=== PATIENT | female | born 1990 | race Two or more races ===

== ENCOUNTER 2022-09-28 10:02 | Emergency (ER) | payer MEDICAID ==
[~2022-09-28] VITALS: Ht 157.5 cm; Wt 77.0 kg
[2022-09-28 10:57] LABS: Urine Bacteria FEW /hpf (None Seen); Urine Blood TRACE /uL (Negative); Urine Mucus FEW (None Seen); Urine Specific Gravity 1.027 (1.001-1.035); Urine WBC <1 /hpf (0 - 5)
[2022-09-28 11:17] VITALS: BP 126/76
[2022-09-28] MEDS ORDERED: SUMA50TA2 PO (12:00)
== END 2022-09-28 12:06 | disposition home or self-care (01) ==
LOC: ER 10:02
DX: G44.209 Tension-type headache, unspecified, not intractable (principal); F41.9 Anxiety disorder, unspecified
CPT/HCPCS: 70450; 81001

== ENCOUNTER → 2022-10-27 | Day surgery (SDC) | payer MEDICAID ==
[2022-10-25 12:11] LABS: Basophils # (auto) 0.1 10 ^3/uL (0-0.2); Basophils % (auto) 0.7 % (0.0-2.0); Hemoglobin 13.5 g/dL (12.2-16.2); Lymphocytes # (auto) 2.3 10 ^3/uL (0.4-5.4); Mean Corpuscular Hgb Conc. 33.7 g/dL (32.0-36.0); Monocytes # (auto) 0.7 10 ^3/uL (0-1.3)
[2022-10-25 12:14] LABS: Eosinophils # (auto) 0.6 10 ^3/uL (0-0.8); Eosinophils % (auto) 6.4 % (0.0-7.0); Hematocrit 39.9 % (36.0-46.0); Lymphocytes % (auto) 25.6 % (10.0-50.0); Mean Corpuscular Hemoglobin 26.5 pg (28.0-32.0); Mean Corpuscular Volume 78.7 fL (80.0-100.0); Monocytes % (auto) 7.6 % (0.0-12.0); Neutrophils # (auto) 5.4 10 ^3/uL (1.6-8.6); Neutrophils % (auto) 59.7 % (37.0-80.0); Nucleated Red Blood Cells % 0.1 %; Red Blood Cells 5.08 10^6/uL (4.0-5.20); Red Cell Distribution Width 14.8 % (11.8-14.3)
[2022-10-25 12:17] LABS: INR 0.94 (0.9-1.15); Partial Thromboplastin Time 29.5 sec (24.6-33.4)
[2022-10-25 12:32] LABS: Albumin 3.7 g/dL (3.4-5.0); Anion Gap 4 (5-15); Blood Urea Nitrogen 14 mg/dL (7-18); Calcium 8.7 mg/dL (8.5-10.1); Carbon Dioxide 29 mmol/L (21-32); Chloride 105 mmol/L (98-107); Glucose 83 mg/dL (74-106); Potassium 3.9 mmol/L (3.5-5.1); Sodium 138 mmol/L (136-145)
[2022-10-25 12:36] LABS: Alanine Aminotransferase 16 U/L (13-56); Alkaline Phosphatase 93 U/L (45-117); Aspartate Aminotransferase < 3 U/L (15-37); Bilirubin, Total 0.5 mg/dL (0.2-1.0); GFR African American 146 mL/min; GFR Non-African American 121 mL/min; Total Protein 7.3 g/dL (6.4-8.2)
[~2022-10-27] MED LIST: LIDOCAINE VISCOUS 2% 15ML UD ONE; LORA10TA6 PO; MEDR150I IM; SUMA50TA2 PO
[2022-10-27] MEDS: MIDAZOLAM HCL 2MG/2ML 2ml VIAL (1mg/ml) ONE ×2 (13:29→13:33)
[2022-10-27] MEDS: fentaNYL CITRATE 100 MCG/2 ML VL ONE ×2 (13:29→13:33)
[2022-10-27] MEDS: diphenhdrAMINE HCL 50 MG/1 ML VL ONE ×2 (13:29→13:31)
[2022-10-27 14:15] VITALS: BP 100/62
== END | disposition home or self-care (01) ==
LOC: GI 12:45
PROVIDERS: ATTEND Internal Medicine Gastroenterology
DX: R11.2 Nausea with vomiting, unspecified (principal); K21.00 Gastro-esophageal reflux disease with esophagitis, without bleeding; K29.90 Gastroduodenitis, unspecified, without bleeding; K44.9 Diaphragmatic hernia without obstruction or gangrene; Z20.822 Contact with and (suspected) exposure to COVID-19
CPT/HCPCS: 36415; 43239; 80053; 81025; 84702; 85025; 85610; 85730; J1200; J2250; J3010; J7030; U0003

== ENCOUNTER 2023-09-20 10:27 | Emergency (ER) | payer MEDICAID ==
[~2023-09-20] VITALS: Ht 157.5 cm; Wt 82.3 kg
[~2023-09-20 10:27] MED LIST changes: -LIDOCAINE VISCOUS 2% 15ML UD ONE
[2023-09-20 11:09] LABS: Lymphocytes # (auto) 2.6 10 ^3/uL (0.4-5.4); Neutrophils # (auto) 4.3 10 ^3/uL (1.6-8.6); White Blood Cell 7.7 10^3/uL (4.4-10.8)
[2023-09-20 11:11] LABS: Basophils # (auto) 0 10 ^3/uL (0-0.2); Basophils % (auto) 0.6 % (0.0-2.0); Eosinophils # (auto) 0.1 10 ^3/uL (0-0.8); Eosinophils % (auto) 1.6 % (0.0-7.0); Hematocrit 41.7 % (36.0-46.0); Hemoglobin 13.7 g/dL (12.2-16.2); Lymphocytes % (auto) 34.5 % (10.0-50.0); Mean Corpuscular Hemoglobin 26.4 pg (28.0-32.0); Mean Corpuscular Hgb Conc. 32.9 g/dL (32.0-36.0); Mean Corpuscular Volume 80.2 fL (80.0-100.0); Monocytes # (auto) 0.6 10 ^3/uL (0-1.3); Monocytes % (auto) 7.4 % (0.0-12.0); Neutrophils % (auto) 55.9 % (37.0-80.0); Red Blood Cells 5.19 10^6/uL (4.0-5.20); Red Cell Distribution Width 15.4 % (11.8-14.3)
[2023-09-20 11:21] LABS: Prothrombin Time 10.5 sec (9.3-11.8)
[2023-09-20 11:26] LABS: Free T3 3.64 pg/mL (2.3-4.2)
[2023-09-20 11:27] LABS: Free T4 (Free Thyroxine) 0.99 ng/dL (0.89-1.76)
[2023-09-20 12:00] LABS: Amphetamine Screen, Urine Neg (NEGATIVE); Barbiturate Scree,Urine Neg (NEGATIVE); Benzodiazephine Screen, Urine Neg (NEGATIVE); Cannabinoid Screen, Urine Neg (NEGATIVE); Cocaine Screen, Urine Neg (NEGATIVE); Opiate Scree,Urine Neg (NEGATIVE); Phencyclidine Screen, Urine Neg (NEGATIVE)
[2023-09-20 12:10] LABS: Alanine Aminotransferase 10 U/L (7-40); Albumin 4.6 g/dL (3.2-4.8); Alkaline Phosphatase 78 U/L (46-116); Anion Gap 7 (5-15); Aspartate Aminotransferase 13 U/L (13-40); BUN/Creatinine Ratio 18.2 (10.0-20.0); Blood Urea Nitrogen 10 mg/dL (9-23); Calcium 9.1 mg/dL (8.7-10.4); Carbon Dioxide 24 mmol/L (20-30); Chloride 106 mmol/L (98-107); Glucose 87 mg/dL (74-106); Lipase 39 U/L (12-53); Potassium 3.9 mmol/L (3.5-5.1); Sodium 137 mmol/L (136-145)
[2023-09-20 12:11] LABS: Bilirubin, Total 0.6 mg/dL (0.2-1.0); Total Protein 7.3 g/dL (5.7-8.2)
[2023-09-20] MEDS ORDERED: METO-281 PO (12:57)
[2023-09-20 13:05] VITALS: BP 100/61; PULSE 80; RESP 18; TEMP 98.1; O2SAT 100
== END 2023-09-20 13:08 | disposition home or self-care (01) ==
LOC: ER 10:27
DX: R07.89 Other chest pain (principal); K21.9 Gastro-esophageal reflux disease without esophagitis; Z90.89 Acquired absence of other organs; Z79.899 Other long term (current) drug therapy
CPT/HCPCS: 36415; 71045; 80053; 80307; 83690; 84439; 84443; 84481; 84484; 85025; 85379; 85610; 93005

== ENCOUNTER 2024-01-07 09:21 | Emergency (ER) | payer MEDICAID ==
[~2024-01-07] VITALS: Ht 157.5 cm; Wt 89.8 kg
[~2024-01-07 09:21] MED LIST changes: +METO-281 PO
[2024-01-07 09:31] VITALS: BP 109/67; PULSE 88; RESP 14; TEMP 98.1; O2SAT 98
== END 2024-01-07 11:27 | disposition home or self-care (01) ==
LOC: ER 09:21
DX: J40 Bronchitis, not specified as acute or chronic (principal); R07.89 Other chest pain; Z90.89 Acquired absence of other organs
CPT/HCPCS: 71046

== ENCOUNTER 2024-04-03 23:54 | Emergency (ER) | payer MEDICAID ==
[~2024-04-03] VITALS: Ht 157.5 cm; Wt 87.5 kg
[2024-04-04 00:28] VITALS: BP 121/84; PULSE 81; RESP 20; O2SAT 97
[2024-04-04] MEDS ORDERED: FLUORESCEIN SOD OPTH TEST STRIP LEFTEYE ONE (02:30)
[2024-04-04] MEDS ORDERED: TETRACAINE HCL 0.5% OPTH(EYE) SOLN 4ML LEFTEYE ONE (02:30)
[2024-04-04] MEDS ORDERED: TETRACAINE HCL 0.5% OPTH(EYE) SOLN 4ML EACHEYE ONE (02:30)
[2024-04-04] MEDS ORDERED: FLUORESCEIN SOD OPTH TEST STRIP EACHEYE ONE (02:30)
== END 2024-04-04 02:27 | disposition left against medical advice (07) ==
LOC: ER 23:54
DX: H57.13 Ocular pain, bilateral (principal); F41.9 Anxiety disorder, unspecified; Z88.1 Allergy status to other antibiotic agents; Z90.89 Acquired absence of other organs